=== PATIENT | female | born 1985 | race Caucasian/White ===

== ENCOUNTER 2023-12-10 15:07 | Emergency (ER) | payer OTHER ==
[~2023-12-10] VITALS: Ht 162.6 cm; Wt 68.5 kg
[2023-12-10] MEDS ORDERED: CARI350T PO (16:49)
[2023-12-10 17:00] VITALS: BP 129/80; TEMP 98.7; O2SAT 100
== END 2023-12-10 17:00 | disposition home or self-care (01) ==
LOC: ER 15:14
DX: S29.8XXA Other specified injuries of thorax, initial encounter (principal); V89.2XXA Person injured in unspecified motor-vehicle accident, traffic, initial encounter; Y93.89 Activity, other specified; Y92.89 Other specified places as the place of occurrence of the external cause; Y99.8 Other external cause status
CPT/HCPCS: 71045-TC